=== PATIENT | male | born 1965 | race Caucasian/White ===

== ENCOUNTER 2019-11-01 14:16 | Emergency (ER) | payer MEDICARE, MEDICAID ==
[2019-11-01] MEDS ORDERED: LIDOCAINE 1% W/ EPINEPHRINE 20 ML VIAL INJ ONE (14:31)
--- NOTE | 2019-11-01 14:45 | ED.PDOC ---
History of Present Illness - General Chief Complaint: Skin/Abrasion/Tear Stated Complaint: sore on right elbow Time Seen by Provider: 11/01/19 14:42 - History of Present Illness Initial Comments: 53 y/o male c/o of painful lesions R elbow, two pustular lesions R upper arm, and olecranon swelling and tenderness L. No f/c, n/v/d. Allergies/Adverse Reactions: Allergies Codeine Allergy (Verified 11/01/19 14:40) Ketorolac Tromethamine [From Toradol] Allergy (Verified 11/01/19 14:40) Morphine Allergy (Verified 11/01/19 14:40) Home Medications: Ambulatory Orders Ibuprofen 600 mg PO Q6HR PRN 7 Days #24 tab 11/01/19 Sulfamethoxazole-Trimethoprim [Bactrim Ds 800-160 mg] 1 tab PO BID 10 Days #20 tab 11/01/19 Tramadol HCl [Conzip] 100 mg PO Q6HRS PRN #20 cap 11/01/19 Review of Systems - Review of Systems Constitutional: States: no symptoms reported EENTM: States: no symptoms reported Respiratory: States: no symptoms reported Cardiology: States: no symptoms reported Gastrointestinal/Abdominal: States: no symptoms reported Musculoskeletal: States: joint pain - L elbow, joint swelling Skin: States: lesions Neurological: States: no symptoms reported Family Medical History - Family History Mother Family History: Unknown Physical Exam - Physical Exam General Appearance: Alert, No apparent distress Eyes, Ears, Nose, Throat Exam: PERRL/EOMI, normal ENT inspection Neck: non-tender, full range of motion, supple, normal inspection Cardiovascular/Chest: normal peripheral pulses, regular rate, rhythm, no edema, no murmur Respiratory: lungs clear, normal breath sounds, no respiratory distress Gastrointestinal/Abdominal: non tender, soft, no organomegaly Back Exam: other - pustular lesion R upper back Extremity: other - olecranon bursa L is hot, red, and tender. full but painful ROM Neurologic: alert, normal mood/affect, oriented x 3, other - gait normal Procedures - Incision and Drainage #2 Procedure and Prep: betadine prep, sterile dressings applied, wound culture collected, pus drained Blade Size: 18 gauge needle for aspiration of olecranon bursa on L Procedure Comments: anesthetized with 1% lidocaine with epi after sterile prep and drape. 18 gauge needle used to aspirate 4cc of straw colored fluid Departure - Departure Clinical Impression: Olecranon bursitis of left elbow Time of Disposition: 15:19 Disposition: Discharge to Home or Self Care Condition: Good Departure Forms: ED Discharge - Pt. Copy, Patient Portal Self Enrollment Instructions: DI for Abrasion Prescriptions: Tramadol HCl [Conzip] 100 mg PO Q6HRS PRN #20 cap PRN Reason: Pain -- Moderate To Severe Ibuprofen 600 mg PO Q6HR PRN 7 Days #24 tab PRN Reason: Pain -- Moderate To Severe Sulfamethoxazole-Trimethoprim [Bactrim Ds 800-160 mg] 1 tab PO BID 10 Days #20 tab Home Medications: Ambulatory Orders Ibuprofen 600 mg PO Q6HR PRN 7 Days #24 tab 11/01/19 Sulfamethoxazole-Trimethoprim [Bactrim Ds 800-160 mg] 1 tab PO BID 10 Days #20 tab 11/01/19 Tramadol HCl [Conzip] 100 mg PO Q6HRS PRN #20 cap 11/01/19
[2019-11-01] MEDS ORDERED: traMADol HCL 50 MG TAB PO ONE (14:49)
[2019-11-01] MEDS ORDERED: IBUPROFEN 200 MG TAB PO ONE (14:49)
[2019-11-01 14:57] VITALS: TEMP 98.3
[2019-11-01 15:23] VITALS: O2SAT 98
--- NOTE | 2019-11-01 15:23 | RAD ---
EXAM DESCRIPTION: Elbow,Left 2 Views CLINICAL HISTORY: pain and swelling COMPARISON: None Available. TECHNIQUE: AP, Lateral, and Oblique FINDINGS: Two-view x-ray left elbow shows no fracture or dislocation. Soft tissue swelling over the olecranon could be cellulitis, soft tissue contusion or olecranon bursitis. Spurring is seen at the coronoid process and at the olecranon. No displacement of distal humeral fat pads. Radial head and capitellum are normally aligned on both views. There is no radiopaque foreign body. IMPRESSION: Soft tissue swelling over the olecranon. Electronically signed by: Shiraz Jerry MD 11/01/2019 3:22 PM CDT
[2019-11-01 15:43] VITALS: BP 128/95
== END 2019-11-01 15:35 | disposition home or self-care (01) ==
LOC: ER 14:16
DX: M70.22 Olecranon bursitis, left elbow (principal); L98.9 Disorder of the skin and subcutaneous tissue, unspecified

== ENCOUNTER 2020-01-19 20:53 | Emergency (ER) | payer MEDICAID, MEDICARE ==
[2020-01-19 21:11] VITALS: BP 150/95; TEMP 97.8; O2SAT 96
[2020-01-19] MEDS ORDERED: NAPROXEN SODIUM 220 MG TAB PO ONE (21:21)
[2020-01-19] MEDS ORDERED: CYCLOBENZAPRINE HCL 10 MG TAB PO ONE (21:21)
--- NOTE | 2020-01-19 21:37 | ED.PDOC ---
History of Present Illness - General Chief Complaint: Skin/Abrasion/Tear Stated Complaint: abd pain Time Seen by Provider: 01/19/20 20:54 Source: patient Exam Limitations: no limitations - History of Present Illness Initial Comments: The patient is a 54-year-old male presented emergency room secondary to pain from his suprapubic abscess site. He apparently had it drained 2 days ago and was started on Keflex and Bactrim along with some tramadol. He is having pain from it tonight. No increased drainage. No rebound or peritoneal signs. No urinary symptoms. No fever. Simply increased pain. He does actually appear to be healing appropriately. There is no extending erythema. No obvious residual abscess. No significant drainage at this point. No significant testicular swelling. Timing/Duration: other - 5 days Severity: moderate Improving Factors: immobilization Worsening Factors: movement Associated Symptoms: denies symptoms Allergies/Adverse Reactions: Allergies Codeine Allergy (Verified 11/01/19 14:40) Ketorolac Tromethamine [From Toradol] Allergy (Verified 11/01/19 14:40) Morphine Allergy (Verified 11/01/19 14:40) Home Medications: Ambulatory Orders Ibuprofen 600 mg PO Q6HR PRN 7 Days #24 tab 11/01/19 Sulfamethoxazole-Trimethoprim [Bactrim Ds 800-160 mg] 1 tab PO BID 10 Days #20 tab 11/01/19 Tramadol HCl [Conzip] 100 mg PO Q6HRS PRN #20 cap 11/01/19 Tramadol HCl [Tramadol Hydrochloride] 1 - 2 mg PO Q6HR PRN 7 Days #24 tab 11/01/19 Cyclobenzaprine HCl [Flexeril] 5 mg PO TID PRN #14 tab 01/19/20 Review of Systems - Review of Systems Constitutional: States: no symptoms reported EENTM: States: no symptoms reported Respiratory: States: no symptoms reported Cardiology: States: no symptoms reported Gastrointestinal/Abdominal: States: no symptoms reported Genitourinary: States: no symptoms reported Musculoskeletal: States: no symptoms reported Skin: States: see HPI Neurological: States: no symptoms reported Endocrine: States: no symptoms reported Hematologic/Lymphatic: States: no symptoms reported All other Systems: No Change from Baseline Past Medical History (General) - Patient Medical History Hx Seizures: No Hx Stroke: No Hx Dementia: No Hx Asthma: No Hx of COPD: No Hx Cardiac Disorders: No Hx Congestive Heart Failure: No Hx Pacemaker: No Hx Hypertension: No Hx Thyroid Disease: No Hx Diabetes: No Hx Gastroesophageal Reflux: No Hx Renal Disease: No Hx Cancer: No Hx of HIV: No Hx Hepatitis C: No Hx MRSA: Yes MRSA Source:: Wound - Vaccination History Hx Tetanus, Diphtheria Vaccination: Yes Hx Influenza Vaccination: Yes Hx Pneumococcal Vaccination: No - Social History Hx Tobacco Use: No Hx Alcohol Use: No Hx Substance Use: No Hx Substance Use Treatment: No Hx Depression: No - Female History Patient : No Family Medical History - Family History Mother Family History: Unknown Physical Exam - Physical Exam General Appearance: Alert, No apparent distress Eye Exam: bilateral normal Ears, Nose, Throat: hearing grossly normal Neck: non-tender, supple Respiratory: no respiratory distress, no accessory muscle use Cardiovascular/Chest: normal peripheral pulses, no edema, other - Regular rate Peripheral Pulses: radial,right: 2+, radial,left: 2+ Gastrointestinal/Abdominal: soft, other - Tenderness to palpation at the abscess drainage site. No evidence of recurrent abscess. No extending erythema. No evidence of peritoneal signs. 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 He is already on tramadol. He can take Aleve twice a day with food to help reduce inflammation. Will be written for short prescription of Flexeril to use as a muscle relaxer as he may be having some lower abdominal muscle spasm due to irritation from the site. No evidence of obvious deeper infection and no evidence of sepsis. Keep well- hydrated. Continue local wound care. ER warnings are given. [email or web address] [id number] Departure - Departure Clinical Impression: Postoperative lower abdominal pain Disposition: Discharge to Home or Self Care Condition: Fair Departure Forms: ED Discharge - Pt. Copy, Patient Portal Self Enrollment Diet: regular diet Activity: increase activity as tolerated Prescriptions: Cyclobenzaprine HCl [Flexeril] 5 mg PO TID PRN #14 tab PRN Reason: Muscle Spasms Home Medications: Ambulatory Orders Ibuprofen 600 mg PO Q6HR PRN 7 Days #24 tab 11/01/19 Sulfamethoxazole-Trimethoprim [Bactrim Ds 800-160 mg] 1 tab PO BID 10 Days #20 tab 11/01/19 Tramadol HCl [Conzip] 100 mg PO Q6HRS PRN #20 cap 11/01/19 Tramadol HCl [Tramadol Hydrochloride] 1 - 2 mg PO Q6HR PRN 7 Days #24 tab 11/01/19 Cyclobenzaprine HCl [Flexeril] 5 mg PO TID PRN #14 tab 01/19/20 Additional Instructions: The patient is a 54-year-old male presenting secondary to pain from his abscess drainage site in the suprapubic area. He is already on tramadol. He can take Aleve twice a day with food to help reduce inflammation. Will be written for short prescription of Flexeril to use as a muscle relaxer as he may be having some lower abdominal muscle spasm due to irritation from the site. No evidence of obvious deeper infection and no evidence of sepsis. Keep well- hydrated. Continue local wound care. ER warnings are given.
== END 2020-01-19 21:51 | disposition home or self-care (01) ==
LOC: ER 20:53
DX: G89.18 Other acute postprocedural pain (principal); R10.30 Lower abdominal pain, unspecified; Z86.14 Personal history of Methicillin resistant Staphylococcus aureus infection; Z79.899 Other long term (current) drug therapy; Z88.5 Allergy status to narcotic agent

== ENCOUNTER → 2020-03-20 | Outpatient (CLI) | payer OTHER | LOC: YCFC.O 11:04 | PROVIDERS: ATTEND Nurse Practitioner Family | DX: Z20.818 Contact with and (suspected) exposure to other bacterial communicable diseases (principal) ==